=== PATIENT | female | born 1990 | race Caucasian/White ===

== ENCOUNTER 2017-09-17 17:02 | Inpatient (IN) ==
[2017-09-17] MEDS ORDERED: ZOLPIDEM 5 MG TABLET PO PRN (17:11)
[2017-09-17] MEDS ORDERED: SALINE FLUSH 10ml SYRINGE IV PRN (17:11)
[2017-09-17] MEDS ORDERED: HYDROCODONE/APAP 5mg/325mg TABLET PO PRN (17:11)
[2017-09-17] MEDS ORDERED: LR 1,000 ML IV PRN ×2 (17:13→17:47)
[2017-09-17] MEDS ORDERED: ACETAMINOPHEN 500 MG TABLET PO PRN (17:47)
[2017-09-17] MEDS ORDERED: CALCIUM CARBONATE Chewable 500mg TABLET PO PRN (17:47)
[2017-09-17] MEDS ORDERED: LIDOCAINE 1% (10mg/ml) 2mL INJ PF SDV ID PRN (17:47)
[2017-09-17] MEDS ORDERED: OXYTOCIN DRIP 30 UNIT/500 ML ML IV PRN (17:47)
[2017-09-17] MEDS ORDERED: CARBOPROST 250 MCG/ML INJECTION IM PRN (17:47)
[2017-09-17] MEDS ORDERED: MAG-AL + SIM ORAL LIQUID 30ml PO PRN (17:47)
[2017-09-17] MEDS ORDERED: METHYLERGONOVINE 0.2 MG/ML INJECTION IM PRN (17:47)
[2017-09-17 18:23] VITALS: BMI 36.1
[2017-09-17] MEDS: D5LR 1,000 ML IV PRN (20:05)
[2017-09-18] MEDS ORDERED: NALOXONE 0.4 MG/ML INJECTION IVP PRN (02:51)
[2017-09-18] MEDS ORDERED: DiphenhydrAMINE 50 MG/ML INJECTION IVP PRN (02:51)
[2017-09-18] MEDS ORDERED: ROPIVACAINE 1% 10MG/ML INJ 200 MG, SUFentanil 50 MCG in NS 100 ML EPI PRN (02:51)
--- NOTE | 2017-09-18 02:51 | Anesthesia Preoperative Report ---
Anesthesia Epidural/Spinal Rec - Date and Time Date: 09/18/17 Procedure: Labor Epidural Plan: Epidural - Vital Signs /Para: P:0 - Medictaions & Allergies Inpatient Medications: Current Medications Acetaminophen (Tylenol) 500 - 1,000 mg PO Q4H PRN PRN Reason: Pain Hydrocodone Bitart/Acetaminophen ([place] 5/325) 1 - 2 tab PO Q4H PRN PRN Reason: Pain Last Admin: 09/17/17 21:40 Dose: 2 tab Al Hydroxide/Mg Hydroxide (Maalox Plus) 30 ml PO Q3H PRN PRN Reason: Indigestion Calcium Carbonate (Tums) 500 - 1,000 mg PO Q2H PRN PRN Reason: Indigestion Carboprost Tromethamine (Hemabate) 250 mcg IM O PRN PRN Reason: .Downtime Lactated Ringer's (Lactated Ringers) 1,000 mls @ 999 mls/hr IV .Q1H1M PRN Dextrose/Lactated Ringer's (Dextrose 5%-Lactated Ringers) 1,000 mls @ 125 mls/ hr IV .Q8H PRN PRN Reason: Labor Last Admin: 09/17/17 20:05 Dose: 125 mls/hr Lactated Ringer's (Lactated Ringers) 1,000 mls @ 999 mls/hr IV .Q1H1M PRN Last Admin: 09/17/17 18:17 Dose: 999 mls/hr Oxytocin (Pitocin Drip) 30 unit in 500 mls @ 2 mls/hr IV .Q24H PRN; Protocol PRN Reason: Induction/Augmentation Last Admin: 09/17/17 20:04 Dose: 2 mls/hr Lidocaine HCl (Xylocaine-Mpf 1% Vial) 0.2 mg ID O PRN PRN Reason: IV Start Methylergonovine Maleate (Methergine) 0.2 mg IM O PRN Misoprostol (Cytotec) 800 mcg NM ONCE PRN Sodium Chloride (Iv Flush) 10 - 80 ml IV PRN PRN PRN Reason: Flushing Zolpidem Tartrate (Ambien) 5 mg PO O PRN PRN Reason: Insomnia Last Admin: 09/17/17 22:21 Dose: 5 mg Allergies/Adverse Reactions: Allergies Allergy/AdvReac Type Severity Reaction Status Date / Time azithromycin Allergy Verified 09/11/17 18:48 clarithromycin Allergy Verified 09/11/17 18:47 - Home Medications Home Medications: Home Medications Medication Instructions Recorded Confirmed Type B-6 09/11/17 History Buspirone BID 09/11/17 History Colace 09/11/17 History Inhaler, Assist Devices 09/11/17 History Vitamins DAILY 09/11/17 History Unisom 09/11/17 History - Medical History Respiratory: Reports: Asthma (has PRN inhaler) Cardiovascular: Reports: Hypertension (mild preeclampsia) Gastrointestional: DENIES: Gastroesophageal Reflux Disease Neuro/Musculoskeletal: Other History: Reports: Now DENIES: Anesthesia Reactions - Surgical History Anesthesia Reactions: None Hx Family Anesthesia Reaction: No History of Motion Sickness: No - Social History Smoking Status: Former smoker Second Hand Exposure: No Substance Use Type: does not use - Pertinent Findings Lab Data: CBC and BMP 09/17/17 17:51 09/17/17 17:51 BMP 09/17/17 17:51 Sodium 141 Potassium 3.6 Chloride 111 H Carbon Dioxide 20 L BUN 6.0 L Creatinine 0.4 L Glucose 75 Calcium 9.5 Liver Function 09/17/17 Range/Units 17:51 Total Bilirubin 0.30 (0.20-1.30) MG/DL AST 24 (14-36) U/L ALT 20 (1-35) U/L Alkaline Phosphatase 178 H (38-126) U/L Albumin 3.7 (3.5-5.0) g/dL - Physical Exam Respiratory Exam: lungs clear, bilateral breath sounds equal Cardiovascular Exam: regular rate and rhythm - Airway Assessment Mallampati Score: II TMD: 2 Fingerbreadths Neck Extension: good Overall Assessment: may be difficult mask vent, may be difficult intubation - ASA ASA Score: 2 - Discussion Discussion: Discussed risks/options/alternatives of anesthesia and questions answered. Patient consents. Nursing pain assessment noted. Anesthesia Discussion: spouse, parent (mother) Attestation Statement: Prior to the delivery of any anesthetic medication, I examined the patient, developed the plan, obtained the patient's consent and discussed the risk and benefits of the procedure with the patient/guardian.
[2017-09-18] MEDS: D5LR 1,000 ML IV PRN (05:10)
[2017-09-18] MEDS: ONDANSETRON 4 MG/2 ML INJECTION IVP PRN ×2 (05:58→12:20)
[2017-09-18] MEDS ORDERED: ZOLPIDEM 5 MG TABLET PO PRN (06:30)
[2017-09-18] MEDS ORDERED: CEFAZOLIN PREMIX (MC ONLY) 2 GM/50 ML BAG IV ONE (09:13)
[2017-09-18] MEDS ORDERED: RHOPHYLAC - PHARMACY CONSULT MC ONE (15:19)
[2017-09-18] MEDS ORDERED: ACETAMINOPHEN 500 MG TABLET PO PRN (15:19)
[2017-09-18] MEDS ORDERED: HYDROCORTISONE 2.5% CREAM 30gm RECTALLY PRN (15:19)
[2017-09-18] MEDS ORDERED: DiphenhydrAMINE 25 MG CAPSULE PO PRN (15:19)
[2017-09-18] MEDS ORDERED: MAG-AL + SIM ORAL LIQUID 30ml PO PRN (15:19)
[2017-09-18] MEDS ORDERED: CALCIUM CARBONATE Chewable 500mg TABLET PO PRN (15:19)
[2017-09-18] MEDS ORDERED: OXYTOCIN DRIP 30 UNIT/500 ML ML IV SCH (15:45)
--- NOTE | 2017-09-18 16:21 | Labor and Delivery Note ---
DATE 09/18/2017 Ms. Berman progressed well in first stage of labor. She began to push with excellent effort at the complete and +2 presentation. She pushed for a short while, delivering the head in the OA presentation. Baby was bulb suctioned on the perineum. With a further push, she delivered the baby in total. There was no nuchal cord. Baby was further bulb suctioned and placed on mother's abdomen. After about two and a half minutes, the cord was doubly clamped. It was cut by the baby's father, Carlos. This is a liveborn male with Apgars of 8/9/9. Weight has not yet been obtained as baby is still in skin-to- skin contact. After a few moments, the placenta delivered spontaneously, intact. It had a normal configuration and eccentrically placed umbilical cord, but a normal cord with normal coiling and appeared intact. There was a second- degree midline laceration that was repaired in the usual fashion with 2-0 Vicryl. There were bilateral superficial labial lacerations that were hemostatic and not repaired. There was a midline laceration between the clitoris and urethra that was hemostatic and was also not repaired. Total blood loss was approximately 400 mL. At the time of this dictation, mother and baby are doing well. [facility]
[2017-09-18] MEDS: IBUPROFEN 800 MG TABLET PO PRN (19:11)
[2017-09-18] MEDS: HYDROCODONE/APAP 5mg/325mg TABLET PO PRN (23:41)
[2017-09-19] MEDS ORDERED: RHO(D) IMMUNE GLOBULIN 300 MCG/2 ML INJECTION IVP ONE (07:30)
--- NOTE | 2017-09-19 08:11 | OB/GYN Progress Note ---
OB-PP Progress Note - General PPD1 Maternal Group B Strep: Negative Maternal blood type: A- Maternal Rubella Status: Immune - Subjective Date: 09/19/17 Lochia: Minimal Pain: controlled Voiding: voiding Nausea or Vomiting Present: No - Objective Vital Signs: Last Vital Signs Temp 97.8 F 09/19/17 06:00 Pulse 98 09/19/17 06:00 Resp 16 09/19/17 06:00 BP 141/75 H 09/19/17 06:00 Pulse Ox 95 09/19/17 06:00 Urine Output: good General: alert and oriented Extremities: non-tender Side: bilateral Site: ankle Edema Degree: 1+ Laboratory: Laboratory Results - last 24 hr 09/18/17 09/18/17 16:54 17:16 Hgb /Adult Ratio 0.0000 RhIG Candidate? Is a candidate - Assessment Assessment: GAB ORO - Plan Plan: routine care
[2017-09-19] MEDS: DOCUSATE CALCIUM 240 MG CAPSULE PO SCH (09:15)
[2017-09-19] MEDS: PRENATAL VITAMIN TABLET PO SCH (09:15)
[2017-09-19] MEDS: IBUPROFEN 800 MG TABLET PO PRN ×2 (09:15→23:03)
--- NOTE | 2017-09-19 14:12 | Anesthesia Postoperative Note ---
- Date and Time Date: 09/19/17 Time: 14:10 - Status Patient Participated in Evaluation: Patient Participated in Person Vital Signs: Temperature 97.8 F 09/19/17 06:00 Pulse Rate 98 09/19/17 06:00 Respiratory Rate 16 09/19/17 06:00 Blood Pressure 141/75 H 09/19/17 06:00 Pulse Oximetry 95 09/19/17 06:00 Respiratory Function: Airway Patent, Regular Respirations Cardiovascular Function: Regular Pulse Mental Status: Alert and Oriented Pain Intensity: 3 Hydration: Taking PO Fluids Complications During Recover: None Apparent - Follow-Up Instructions Instructions: Per Surgeon
[2017-09-19] MEDS: HYDROCODONE/APAP 5mg/325mg TABLET PO PRN (15:56)
[2017-09-20] MEDS: PRENATAL VITAMIN TABLET PO SCH (06:59)
[2017-09-20] MEDS: DOCUSATE CALCIUM 240 MG CAPSULE PO SCH (07:00)
[2017-09-20] MEDS: IBUPROFEN 800 MG TABLET PO PRN (07:00)
[2017-09-20 07:13] VITALS: BP 148/84; PULSE 78; RESP 18; TEMP 98; O2SAT 98
== END 2017-09-20 10:30 | disposition home or self-care (01) | DRG 775 ==
LOC: MC 17:02
PROVIDERS: ADMIT Obstetrics & Gynecology; ATTEND Obstetrics & Gynecology